=== PATIENT | female | born 1970 | race Caucasian/White ===

== ENCOUNTER 2016-06-17 17:24 | Emergency (ER) | payer SELFPAY ==
[~2016-06-17] VITALS: Ht 162.6 cm; Wt 106.8 kg
[~2016-06-17 17:24] MED LIST: ALBUTEROL SULFAT8 MG; ALDACTONE 25MG25 M1 PO; AMOXICILLIN875 MG PO; ATIVAN 1MG T1 MG/TAB PO; ATIVAN1 MG PO; B-1100 MG PO; CATAPRES; CATAPRES 0.1MG0.1 MG PO; CATAPRES PO; CATAPRES0.1 MG PO; CATAPRES0.2 MG PO; CATAPRES0.3 MG PO; CELEXA 20MG20 MG/TAB PO; CIPRO 250MG TA250 MG PO; CIPRO 500MG TA500 MG PO; CLEOCIN HC150 MG/CAP PO; CLINDAMYCIN300 MG PO; COREG 25MG25 MG/TAB PO; DIFLUCAN100 MG PO; DILAUDID 2MG TAB2 MG; DILAUDID 4MG TAB4 MG PO; DOXYCYCLINE 10100 MG PO; EFFEXOR XR75 MG/CAP PO; FLEXERIL 1010 MG/TAB PO; FOLIC ACID 11 MG/TA1 PO; HYDROCODONE/APAP PO; HYDROXYZINE HCL25 MG PO; INDERAL 20MG20 MG PO; KLOR-CON M2020 MEQ PO; LASIX 20MG TABL20 MG PO; LEVSIN 0.10.125 MG/T PO; LIPITOR 10MG10 MG PO; LOPRESSOR 550 MG/TAB PO; LORTAB 5/500 501 TAB PO; MOTRIN 200200 MG/TAB PO; MOTRIN800 MG PO; MULTI VITAMINS1 TAB PO; NAPROSYN500 MG PO; NITROSTAT0.4 MG/TAB SL; NO HOME MEDICATIONS; NORCO 325 MG-51 TAB PO; NORVASC 5MG5 MG/TAB PO; PEN-VEE K250 MG PO; PERCOCET 325 MG1 TA2 PO; PERCOCET 325 MG1 TAB PO; PERCOCET 5/321 UDTAB PO; PREDNISONE20 MG PO; PRILOSEC 20MG20 MG PO; PROAIR HFA0.09 MG/AC IH; PROCARDIA XL 3030 MG PO; PROPRANOLOL HCL40 MG PO; PROVENTIL0.09 MG/A1 IH; RT ADVAIR 228 DISKUS IH; TESSALON PERLE200 MG PO; TOPROL; TOPROL XL50 MG PO; ULTRAM 50MG TAB50 MG PO; ULTRAM100 MG PO; ULTRAM50 MG PO; XANAX; XANAX 1MG1 MG PO; XANAX1 MG PO; ZITHROMAX 250M250 MG PO; ZOLOFT50 MG PO; [UNRECOGNIZED DRUG - OTHER]; [UNRECOGNIZED DRUG - REMARK]; propanolol
[2016-06-17 17:33] VITALS: BP 143/107; TEMP 100.7
[2016-06-17 19:57] LABS: AMPHETAMINE URINE NEGATIVE; BARBITURATES URINE NEGATIVE; BENZODIAZEPINES URINE NEGATIVE; BUPRENORPHINE URINE NEGATIVE; METHADONE URINE NEGATIVE; OPIATES URINE NEGATIVE; OXYCODONE URINE NEGATIVE; PHENCYCLIDINE URINE NEGATIVE; PROPOXYPHENE URINE NEGATIVE; THC CANNABINOIDS URINE NEGATIVE
[2016-06-17 20:08] LABS: BASO # 0.1 (0.0-0.2); BASO % 0.7 % (0.0-2.0); EOS # 0.2 (0.0-0.7); EOS % 1.4 % (0-4.0); GRAN # 5.6 (1.4-6.5); GRAN % 49.6 % (42.2-75.2); HEMOGLOBIN 15.5 g/dl (12.5-16.0); LYMPH # 4.4 (1.2-3.4); LYMPH % 39.6 % (20.0-51.0); MEAN CELL VOLUME 93 fl (80.0-100.0); MEAN CORPUSCULAR HEMOGLOBIN 31 pg (27.0-31.0); MEAN CORPUSCULAR HGB CONC 34 g/dl (33.0-37.0); MEAN PLATELET VOLUME 9.3 fl (7.4-10.4); MONO % 8.5 % (1.7-9.3); PLATELET COUNT 330 K/mm3 (130-400); RED BLOOD COUNT 4.94 M/mm3 (4.10-5.30); REDCELL DISTRIBUTION WIDTH-CV 13.5 % (11.5-14.5); WHITE BLOOD COUNT 11.2 K/mm3 (4.8-10.8)
[2016-06-17 20:11] LABS: ADJUSTED CALCIUM 9.1 mg/dL (8.4-10.2); ALBUMIN 4.6 gm/dL (3.5-5.0); BILIRUBIN,TOTAL 0.8 mg/dL (0.0-1.0); CALCIUM 9.6 mg/dL (8.4-10.2); CREATININE, serum 0.95 mg/dL (0.52-1.25); POTASSIUM 3.8 mmol/L (3.4-5.0); TOTAL PROTEIN 7.8 gm/dL (6.4-8.2)
[2016-06-18] VITALS: PULSE 92
== END 2016-06-18 00:01 | disposition home or self-care (01) ==
LOC: COL.ER 17:24
PROVIDERS: Family Medicine
DX: F32.9 Major depressive disorder, single episode, unspecified (principal); F10.120 Alcohol abuse with intoxication, uncomplicated; Y90.6 Blood alcohol level of 120-199 mg/100 ml; F17.210 Nicotine dependence, cigarettes, uncomplicated

== ENCOUNTER 2016-07-02 17:37 | Emergency (ER) | payer MEDICAID ==
[~2016-07-02] VITALS: Ht 162.6 cm; Wt 109.1 kg
[2016-07-02 17:39] VITALS: TEMP 98.3
[2016-07-02 18:10] LABS: HEMATOCRIT 39.4 % (37.0-47.0); HEMOGLOBIN 13.3 g/dl (12.5-16.0); MEAN CELL VOLUME 94 fl (80.0-100.0); MEAN CORPUSCULAR HEMOGLOBIN 32 pg (27.0-31.0); MEAN CORPUSCULAR HGB CONC 34 g/dl (33.0-37.0); MEAN PLATELET VOLUME 10.4 fl (7.4-10.4); PLATELET COUNT 192 K/mm3 (130-400); REDCELL DISTRIBUTION WIDTH-CV 13.7 % (11.5-14.5)
[2016-07-02 18:13] LABS: WHITE BLOOD COUNT 1.9 K/mm3 (4.8-10.8)
[2016-07-02 18:14] LABS: ADD PATHOLOGY DIFF REVIEW NO
[2016-07-02 18:15] LABS: INR 1.2 (0.8-3.0); PROTHROMBIN TIME 13.6 SECONDS (9.7-12.8)
[2016-07-02 18:18] LABS: PARTIAL THROMBOPLASTIN TIME 31.9 SECONDS (26.0-37.0)
[2016-07-02 18:20] LABS: ADJUSTED CALCIUM 9.1 mg/dL (8.4-10.2); ALBUMIN 3.5 gm/dL (3.5-5.0); BILIRUBIN,TOTAL 1.4 mg/dL (0.0-1.0); CALCIUM 8.7 mg/dL (8.4-10.2); CREATININE, serum 1.56 mg/dL (0.52-1.25); POTASSIUM 3.4 mmol/L (3.4-5.0); TOTAL PROTEIN 6.6 gm/dL (6.4-8.2)
[2016-07-02 18:31] LABS: TROPONIN-I 0.015 ng/mL (0.000-0.034)
[2016-07-02 18:50] LABS: ARTERIAL BLD GAS TCO2 CT 21.8; ARTERIAL BLOOD GAS HCO3 20.6 meq/L (22-26); ARTERIAL BLOOD GAS PHT 7.33 C (7.35-7.45); ARTERIAL BLOOD GAS PO2 62.4 mmHg (80-100); ARTERIAL BLOOD GAS PO2T 62.4 (80-100); ARTERIAL BLOOD GAS pH 7.33 (7.35-7.45); OXYHEMOGLOBIN 90.2 %
[2016-07-02 18:52] LABS: ATS? YES
[2016-07-02 19:04] LABS: INFLUENZA B NEGATIVE
[2016-07-02 19:34] LABS: BAND 44 % (0-10); BASOPHIL 4 % (0-2); NEUTROPHILS 24 % (42.0-75.2); PLATELET ESTIMATE NORMAL (NORMAL)
[2016-07-02 19:35] LABS: TOTAL CELLS COUNTED 25
[2016-07-02 21:20] VITALS: BP 68/58; PULSE 86
== END 2016-07-02 21:35 | disposition short-term general hospital (02) ==
LOC: COL.ER 17:37
PROVIDERS: Family Medicine
DX: J96.90 Respiratory failure, unspecified, unspecified whether with hypoxia or hypercapnia (principal); J18.9 Pneumonia, unspecified organism; I10 Essential (primary) hypertension; J44.9 Chronic obstructive pulmonary disease, unspecified
CPT/HCPCS: C1751; J0330; J1100; J1170; J2185; J2250; J2405; J3010; J3370; J7030; J7050; J7060

== ENCOUNTER → 2016-07-31 | Outpatient (CLI) | payer MEDICAID ==
[2016-07-31 09:31] LABS: BASO # 0.1 (0.0-0.2); BASO % 0.7 % (0.0-2.0); EOS # 0.5 (0.0-0.7); EOS % 4.3 % (0-4.0); GRAN % 65.1 % (42.2-75.2); HEMATOCRIT 43.6 % (37.0-47.0); HEMOGLOBIN 13.9 g/dl (12.5-16.0); LYMPH # 2.1 (1.2-3.4); LYMPH % 19.6 % (20.0-51.0); MEAN CELL VOLUME 97 fl (80.0-100.0); MEAN CORPUSCULAR HEMOGLOBIN 31 pg (27.0-31.0); MEAN CORPUSCULAR HGB CONC 32 g/dl (33.0-37.0); MEAN PLATELET VOLUME 9.2 fl (7.4-10.4); MONO % 9.6 % (1.7-9.3); PLATELET COUNT 404 K/mm3 (130-400); RED BLOOD COUNT 4.51 M/mm3 (4.10-5.30); REDCELL DISTRIBUTION WIDTH-CV 12.9 % (11.5-14.5); WHITE BLOOD COUNT 10.8 K/mm3 (4.8-10.8)
[2016-07-31 10:06] LABS: ADJUSTED CALCIUM 10.2 mg/dL (8.4-10.2); BILIRUBIN,TOTAL 0.9 mg/dL (0.0-1.0); CALCIUM 10.2 mg/dL (8.4-10.2); CREATININE, serum 0.66 mg/dL (0.52-1.25); POTASSIUM 4.9 mmol/L (3.4-5.0)
[2016-07-31 10:37] LABS: THYROID STIMULATING HORMONE 1.1 uIU/mL (0.465-4.680)
== END ==
LOC: COL.LAB 08:40 → ZLAB.FHCC 08:40
DX: J16.8 Pneumonia due to other specified infectious organisms (principal); E11.69 Type 2 diabetes mellitus with other specified complication

== ENCOUNTER → 2016-11-24 | Outpatient (CLI) | payer OTHER | LOC: COL.RAD 08:56 | DX: Z02.71 Encounter for disability determination (principal); M46.96 Unspecified inflammatory spondylopathy, lumbar region; M51.46 Schmorl's nodes, lumbar region ==

== ENCOUNTER → 2017-02-27 | Outpatient (CLI) | payer MEDICAID | LOC: COL.CARD 11:34 | DX: R00.2 Palpitations (principal) ==

== ENCOUNTER 2018-10-02 15:19 | Emergency (ER) | payer SELFPAY ==
[~2018-10-02] VITALS: Ht 160 cm; Wt 100.0 kg
[2018-10-02 15:30] VITALS: TEMP 98.3
[2018-10-02 16:05] LABS: BASO # 0.1 (0.0-0.2); EOS # 0.4 (0.0-0.7); EOS % 4.3 % (0-4.0); GRAN # 5.8 (1.4-6.5); GRAN % 63.3 % (42.2-75.2); HEMATOCRIT 40.7 % (37.0-47.0); HEMOGLOBIN 13.1 g/dl (12.5-16.0); LYMPH # 2.1 (1.2-3.4); LYMPH % 22.9 % (20.0-51.0); MEAN CELL VOLUME 94 fl (80.0-100.0); MEAN CORPUSCULAR HEMOGLOBIN 30 pg (27.0-31.0); MEAN CORPUSCULAR HGB CONC 32 g/dl (33.0-37.0); MEAN PLATELET VOLUME 9.4 fl (7.4-10.4); MONO # 0.7 (0.1-0.6); PLATELET COUNT 297 K/mm3 (130-400); RED BLOOD COUNT 4.31 M/mm3 (4.10-5.30); REDCELL DISTRIBUTION WIDTH-CV 12.1 % (11.5-14.5)
[2018-10-02 16:07] LABS: INR 0.9 (0.8-3.0); PROTHROMBIN TIME 10.1 SECONDS (9.7-12.8)
[2018-10-02 16:09] LABS: PARTIAL THROMBOPLASTIN TIME 30.7 SECONDS (26.0-37.0)
[2018-10-02 16:16] LABS: D-DIMER < 200.00 ng/mLDDu (200-230)
[2018-10-02 16:26] LABS: ALANINE AMINOTRANSFERASE 27 U/L (9-52); ALBUMIN 3.6 gm/dL (3.5-5.0); ALKALINE PHOSPHATASE 78 U/L (50-136); ANION GAP 7 mmol/L (7-16); AST,SGOT 25 U/L (15-37); BILIRUBIN,TOTAL 0.4 mg/dL (0.0-1.0); BLOOD UREA NITROGEN 18 mg/dL (7-17); CALCIUM 8.7 mg/dL (8.4-10.2); CARBON DIOXIDE 28 mmol/L (22-30); CHLORIDE 107 mmol/L (98-107); CREATININE, serum 0.61 (0.52-1.25); GLUCOSE 119 mg/dL (74-106); LIPASE 256 U/L (23-300); SODIUM 142 mmol/L (137-145); TOTAL PROTEIN 6.5 gm/dL (6.4-8.2)
[2018-10-02] MEDS ORDERED: PRINIVIL5 MG PO (16:37)
[2018-10-02] MEDS ORDERED: MINIPRESS 1M1 MG/CAP PO (16:38)
[2018-10-02] MEDS ORDERED: LEXAPRO20 MG PO (16:38)
[2018-10-02 16:45] LABS: TROPONIN-I < 0.012 ng/mL (0.000-0.035)
[2018-10-02] MEDS ORDERED: PREDNISONE20 MG PO (17:04)
[2018-10-02] MEDS ORDERED: ZITHROMAX 250M250 MG PO (17:04)
[2018-10-02 17:15] VITALS: BP 144/102; PULSE 73
== END 2018-10-02 17:22 | disposition home or self-care (01) ==
LOC: COL.ER 15:19
PROVIDERS: Emergency Medicine
DX: J40 Bronchitis, not specified as acute or chronic (principal); I10 Essential (primary) hypertension; E78.5 Hyperlipidemia, unspecified; J44.9 Chronic obstructive pulmonary disease, unspecified; Z86.711 Personal history of pulmonary embolism; Z87.891 Personal history of nicotine dependence
CPT/HCPCS: J7512

== ENCOUNTER → 2020-05-15 | Outpatient (CLI) | payer SELFPAY ==
[~2020-05-15] MED LIST changes: +LEXAPRO20 MG PO; +MINIPRESS 1M1 MG/CAP PO; +PRINIVIL5 MG PO
== END ==
LOC: COL.RAD 08:39
DX: K44.9 Diaphragmatic hernia without obstruction or gangrene (principal); K21.9 Gastro-esophageal reflux disease without esophagitis

== ENCOUNTER 2020-07-24 06:59 | Day surgery (SDC) | payer OTHER ==
[~2020-07-24] VITALS: Ht 162.6 cm; Wt 117.6 kg
[2020-07-24] MEDS ORDERED: CARAFATE 1GM1 G PO (08:50)
[2020-07-24 09:05] VITALS: BP 157/96; PULSE 91; TEMP 97.4
--- NOTE | 2020-07-24 09:05 | NUR ---
Pt to GI bay 3 via cart from ENDO. Pt awake and alert. Pt ambulates to recliner with stand by assistance. Pt denies pain or nausea. Grape juice given per pt request. Will continue to monitor. Call light within reach.
[2020-07-24 09:20] VITALS: BP 144/103; PULSE 82
--- NOTE | 2020-07-24 09:20 | NUR ---
Pt continues to rest. Denies needs. Call light within reach.
[2020-07-24 09:35] VITALS: BP 149/104; PULSE 81
--- NOTE | 2020-07-24 09:35 | NUR ---
Pt tolerating juice without difficulties. Will continue to monitor. Call light within reach.
[2020-07-24 09:44] VITALS: BP 180/115; PULSE 95; TEMP 96.4
--- NOTE | 2020-07-24 09:45 | NUR ---
Discharge instructions reviewed. Pt voices understanding. IV site discontinued with all parts intact. Pt up to dress. Call light within reach.
--- NOTE | 2020-07-24 10:00 | NUR ---
Pt escorted to private car via wheel chair. Pt accompanied home by her daughter.
== END 2020-07-24 10:00 | disposition home or self-care (01) ==
LOC: SDCO 06:59
DX: K29.30 Chronic superficial gastritis without bleeding (principal); K21.9 Gastro-esophageal reflux disease without esophagitis; J44.9 Chronic obstructive pulmonary disease, unspecified; R13.10 Dysphagia, unspecified; E78.5 Hyperlipidemia, unspecified; G47.33 Obstructive sleep apnea (adult) (pediatric); I25.10 Atherosclerotic heart disease of native coronary artery without angina pectoris; I10 Essential (primary) hypertension; G89.29 Other chronic pain; K44.9 Diaphragmatic hernia without obstruction or gangrene; F41.9 Anxiety disorder, unspecified; Z95.1 Presence of aortocoronary bypass graft; Z90.710 Acquired absence of both cervix and uterus; Z79.899 Other long term (current) drug therapy; Z88.2 Allergy status to sulfonamides; Z20.822 Contact with and (suspected) exposure to COVID-19; Z87.891 Personal history of nicotine dependence
CPT/HCPCS: J2704

== ENCOUNTER → 2020-12-18 | Emergency (ER) | payer SELFPAY ==
[~2020-12-18] VITALS: Ht 160 cm; Wt 130.0 kg
[~2020-12-18] MED LIST changes: +CARAFATE 1GM1 G PO
[2020-12-18 20:00] VITALS: BP 163/107; PULSE 106; TEMP 98.5
== END ==
LOC: COL.ER 19:28
DX: R51.9 Headache, unspecified (principal)

== ENCOUNTER 2022-02-10 17:30 | Inpatient (IN) | payer SELFPAY ==
[~2022-02-10] VITALS: Ht 162.6 cm; Wt 120.0 kg
[2022-02-10 18:27] LABS: BASO # 0.1 K/mm3 (0.0-0.2); BASO % 0.7 % (0.0-2.0); EOS # 0.2 K/mm3 (0.0-0.7); EOS % 1.7 % (0.0-4.0); GRAN # 7.6 K/mm3 (1.4-6.5); GRAN % 70.5 % (42.2-75.2); HEMATOCRIT 38.9 % (37.0-47.0); HEMOGLOBIN 11.8 g/dl (12.5-16.0); LYMPH # 1.7 K/mm3 (1.2-3.4); LYMPH % 16.1 % (20.0-51.0); MEAN CELL VOLUME 90 fl (80.0-100.0); MEAN CORPUSCULAR HEMOGLOBIN 27 pg (27-31); MEAN CORPUSCULAR HGB CONC 30 g/dl (33.0-37.0); MEAN PLATELET VOLUME 9.7 fl (7.4-10.4); MONO # 1.1 K/mm3 (0.1-0.6); MONO % 10.6 % (1.7-9.3); PLATELET COUNT 368 K/mm3 (130-400); RED BLOOD COUNT 4.32 M/mm3 (4.10-5.30); REDCELL DISTRIBUTION WIDTH-CV 18.2 % (11.5-14.5)
[2022-02-10 18:43] LABS: BILIRUBIN,TOTAL 0.7 mg/dL (0.2-1.2); CALCIUM 9.6 mg/dL (8.4-10.2); CREATININE, serum 1.05 mg/dL (0.57-1.11); POTASSIUM 3.1 mmol/L (3.5-4.5)
[2022-02-10 18:51] LABS: TROPONIN-I 0.043 ng/mL (0.00-0.033)
[2022-02-10 18:53] LABS: ARTERIAL BLD GAS O2 SATURATION 94.3 % (92-100); ARTERIAL BLD GAS TCO2 CT 28.3; ARTERIAL BLOOD GAS BASE EXCESS -0.6 (-2-2); ARTERIAL BLOOD GAS HCO3 26.6 meq/L (22-26); ARTERIAL BLOOD GAS PCO2 54.9 mmHg (35-45)
--- NOTE | 2022-02-10 22:30 | NUR ---
pt brought to room 343 from ED. pt a&o, answering questing appropriately. pt unable to sit still. admission assess complete. Pt reports difficulty breathing, 5L NC applied. Tele in place. no needs at this time. call light within reach. pt has red dye on body that she reports is from trying to make koolaid.
[2022-02-10 23:21] VITALS: BP 187/122; PULSE 124; TEMP 98.6
[2022-02-11] VITALS (7 sets, daily range): BP systolic 94–144; BP diastolic 52–88; PULSE 86–121; TEMP 96.4–99.2
--- NOTE | 2022-02-11 01:00 | NUR ---
PT DIAPHORETIC AND UNABLE TO SIT STILL CAUSING IV TO COME OUT. NEW IV INSERTED.
--- NOTE | 2022-02-11 01:36 | NUR ---
PT DAUGHTER, FLORIAN RIVERA ([phone]) CALLED AND STATED SHE LIVES IN [place] BUT IS COMING TO DOWN WITHIN THE NEXT TWO DAYS TO CONVINCE MOTHER TO GO TO REHAB. OTHER DAUGHTER IS [place] AND LIVES IN [facility].
[2022-02-11 04:54] LABS: COLLECTION METHOD CLEAN CATCH
[2022-02-11 05:06] LABS: MUCOUS Present (NOT PRESENT); SQUAMOUS EPITHELIAL 0-2 /hpf (0-10); URINE BACTERIA None Seen /hpf (NONE SEEN); URINE RBC 20-50 /hpf (0-2)
[2022-02-11 05:10] LABS: URINE APPEARANCE Clear (CLEAR/HAZY); URINE COLOR Yellow (YELLOW)
[2022-02-11 05:11] LABS: URINE BLOOD 2+ (NEGATIVE); URINE GLUCOSE Negative (NEGATIVE); URINE KETONE 2+ (NEGATIVE); URINE NITRATE Negative (NEGATIVE); URINE PROTEIN(semi-quant) 2+ (NEGATIVE); URINE UROBILINOGEN 0.2 E.U/dL (0.2-1.0)
[2022-02-11 05:16] LABS: TRICYCLIC ANTIDEPRESS URINE NEGATIVE
--- NOTE | 2022-02-11 09:00 | NUR ---
Pt. laying in bed. Pt. is resting quietly with respirations equal and unlabored. Pt. arousable to verbal stimuli. When pt. is awake, pt. has uncontrollable body movements which tend to stop when sleeping. Shift assessment complete. INT to lt. forearm patent. Pt. denies pain or other needs, call light within reach.
[2022-02-11 09:33] LABS: CALCIUM 8.7 mg/dL (8.4-10.2); CREATININE, serum 0.83 mg/dL (0.57-1.11); POTASSIUM 4.1 mmol/L (3.5-4.5)
--- NOTE | 2022-02-11 17:05 | NUR ---
SW attempted to complete intake, however patient sleeping. Several attempts made to arouse patient but was unsuccessful.
--- NOTE | 2022-02-11 21:00 | NUR ---
PATIENT IS CALM IN BED.PATIENT REPORTS OF A HEADACHE.MEDICATION ADMINISTERED PER MAR.PATEINT HAS UNCONTROLLED BLE MOVEMENTS.PATIENT IS A SBA.PATIENT'S DAUGHTER CALLED SHE STATED THAT SHE WILL LIKE THE DOCTOR TO CALL HER AND EXPLAIN HER MUM'S LAB RESULTS.SHE FEELS THAT SHE HAS EXTRA INFO THAT SHE WILL LIKE TO SHARE WITH THE DOCTOR.THIS WILL IN TURN HELP IN PATIENT CARE.HER NUMBER IS [phone].
[2022-02-12 04:09] VITALS: BP 127/86; PULSE 103; TEMP 98
--- NOTE | 2022-02-12 06:01 | NUR ---
PATIENT SLEPT FOR MOST PART OF THE NIGHT.PATIENT HAS SUPPLEMENTAL OXYGEN AT 4L/HR.PATIENT IS A STANDBY ASSIST.NO SEIZURES OBSERVED NOR SOB.SAFETY MEASURES IN PLACE.NO OHER NEEDS AT THIS TIME.
[2022-02-12 06:37] LABS: BASO % 0.1 % (0.0-2.0); GRAN % 89.3 % (42.2-75.2); HEMOGLOBIN 10.7 g/dl (12.5-16.0); LYMPH # 0.6 K/mm3 (1.2-3.4); LYMPH % 4.3 % (20.0-51.0); MEAN CELL VOLUME 93 fl (80.0-100.0); MEAN CORPUSCULAR HEMOGLOBIN 27 pg (27-31); MEAN CORPUSCULAR HGB CONC 30 g/dl (33.0-37.0); MEAN PLATELET VOLUME 10.1 fl (7.4-10.4); MONO # 0.8 K/mm3 (0.1-0.6); MONO % 5.6 % (1.7-9.3); PLATELET COUNT 284 K/mm3 (130-400); REDCELL DISTRIBUTION WIDTH-CV 18.4 % (11.5-14.5)
[2022-02-12 06:44] LABS: HEMATOCRIT 36.1 % (37.0-47.0)
[2022-02-12 06:50] LABS: CALCIUM 8.8 mg/dL (8.4-10.2); CREATININE, serum 0.78 mg/dL (0.57-1.11); MAGNESIUM 2.4 mg/dL (1.6-2.6); POTASSIUM 4.1 mmol/L (3.5-4.5)
[2022-02-12 07:41] VITALS: BP 129/74; PULSE 107; TEMP 97.9
--- NOTE | 2022-02-12 08:35 | NUR ---
Pt. sitting up in bed. Pt. is A&OX3, assessment complete. INT to lt. forearm patent. Pt. denies pain or other needs, call light within reach.
--- NOTE | 2022-02-12 10:30 | NUR ---
Pt. transfered to room 308. Report given to ELAINA Donohue
[2022-02-12 10:38] VITALS: BP 98/65; PULSE 133; TEMP 98.3
--- NOTE | 2022-02-12 10:41 | NUR ---
PT ADMITTED TO MEDICAL UNIT ROOM 308. PT ORIENTED TO ROOM, SHIFT ASSESSMENT COMPLETED. PT DENIES ANY NEEDS AT THIS TIME. FAMILY CONTACTED AND UPDATED PER PT REQUEST. WILL CONTINUE TO MONITOR. CALL LIGHT WITHIN REACH.
[2022-02-12 11:19] VITALS: BP 121/67; PULSE 97; TEMP 97.8
[2022-02-12 15:22] VITALS: BP 138/89; PULSE 106; TEMP 97.7
[2022-02-12] MEDS ORDERED: ASPIRIN 81M81 MG/TA2 PO (16:50)
[2022-02-12 21:10] VITALS: BP 145/76; PULSE 104; TEMP 98.2
--- NOTE | 2022-02-13 00:02 | NUR ---
PATIENT IS LAYING IN BED TALKING ON TELEPHONE. PATIENT INTRODUCES THIS NURSE TO HER MOTHER ON THE PHONE. PATIENT REQUESTS PEPSI AND VLAD CRACKS; NURSE PROVIDES REQUESTED SNACKS TO PATIENT. PATIENT DENIES ANY FURTHER NEEDS OR CONERNS. PATIENT HAS CALL LIGHT IN HAND AND IS ENCOURAGED BY THIS NURSE TO CALL WITH ANY NEEDS.
[2022-02-13 01:18] VITALS: BP 117/69; PULSE 101; TEMP 98
[2022-02-13 04:41] VITALS: BP 148/89; PULSE 61; TEMP 98.1
--- NOTE | 2022-02-13 05:47 | NUR ---
PATIENT HAS HAD AN UNEVENTFUL NIGHT. PATIENT'S INVOLUNTARY MOVEMENTS HAVE IMPROVED, EVIDENCED BY THE PATIENT BEING ABLE TO LAY STILL WITH OCCASSIONAL LEG TWITCHING. PATIENT DENIES NEEDS OR CONCERNS. PATIENT HAS CALL LIGHT WITHIN REACH AND ENCOURAGED TO USE WITH ANY NEEDS OR CONCERNS. PATIENT STATES UNDERSTANDING AND STATES SHE IS THANKFUL FOR HER CARES.
[2022-02-13 07:11] LABS: HEMOGLOBIN 10.8 g/dl (12.5-16.0); MEAN CELL VOLUME 92 fl (80.0-100.0); MEAN CORPUSCULAR HEMOGLOBIN 27 pg (27-31); MEAN CORPUSCULAR HGB CONC 30 g/dl (33.0-37.0); MEAN PLATELET VOLUME 9.7 fl (7.4-10.4); PLATELET COUNT 273 K/mm3 (130-400); RED BLOOD COUNT 3.98 M/mm3 (4.10-5.30); REDCELL DISTRIBUTION WIDTH-CV 17.9 % (11.5-14.5)
[2022-02-13 07:14] LABS: HEMATOCRIT 36.5 % (37.0-47.0)
[2022-02-13 07:15] VITALS: BP 136/88; PULSE 102; TEMP 98.1
[2022-02-13 07:21] LABS: CALCIUM 8.6 mg/dL (8.4-10.2); CREATININE, serum 0.8 mg/dL (0.57-1.11); MAGNESIUM 2.5 mg/dL (1.6-2.6)
--- NOTE | 2022-02-13 08:00 | NUR ---
Pt resting in bed. Morning medications administered. Shift assessment completed. O2 per NC turned off by RT as Ex Ox ordered for this morning; O2 is at 92%. Telemetry on; pt remains tachy with HR in the 100s. Doxycycline infusing in L forearm @150mL/hr; intact. No edema or redness. Pt complains of headache; PRN Tylenol administered per eMAR for pain. Call light within reach.
[2022-02-13] MEDS ORDERED: DOXYCYCLINE 10100 MG PO (08:12)
[2022-02-13] MEDS ORDERED: PREDNISONE20 MG PO (08:18)
[2022-02-13] MEDS ORDERED: OXYGEN NASAL.CANN (08:18)
[2022-02-13 08:35] LABS: ANISOCYTOSIS 1+; BAND 1 % (0-10); HYPOCHROMIA 3+; LYMPHOCYTE 2 % (20.0-51.0); NEUTROPHILS 93 % (42.0-75.2); PLATELET ESTIMATE NORMAL (NORMAL)
[2022-02-13 11:44] VITALS: BP 152/85; PULSE 102; TEMP 98.2
--- NOTE | 2022-02-13 12:00 | NUR ---
Pt given discharge instructions by this AUTOMOBILE SERVICE ADVISOR. All questions answered.
--- NOTE | 2022-02-13 15:19 | NUR ---
Technical Services Librarian met with patient to discuss discharge planning. Patient lives in [place] with her mom, Nataly and advised her two daughters, Atiya and Clover also live here in [place]. Patient does not have DPOA-HC and is not interested in completing one at this time. Patient is not and has three daughters: Atiya, Clover, and Laura. [facility] and obtains medications from [facility]. Patient is normally independent with ADLS and plans to return home today. Patient will need home oxygen set up and is self pay. Patient has a concentrator and tank from [facility] already at home. SW faxed [facility] a new referral and they will bring up new tubing and cannulas for patient. Patient advised her daughters will bring up her oxygen tank for transport home. Discharge Plan: Home
--- NOTE | 2022-02-13 17:15 | NUR ---
Pt escorted by JAMIE Mcneil out of facility.
== END 2022-02-13 17:15 | disposition home or self-care (01) | DRG 189 ==
LOC: COL.ER 17:30 → SURG 19:43 → MEDICAL 02-12 10:13
PROVIDERS: Emergency Medicine; Hospitalist; Student in an Organized Health Care Education/Training Program; ADMIT Internal Medicine
DX: J96.01 Acute respiratory failure with hypoxia (principal); I21.A1 Myocardial infarction type 2; J44.1 Chronic obstructive pulmonary disease with (acute) exacerbation; G93.40 Encephalopathy, unspecified; J96.02 Acute respiratory failure with hypercapnia; I10 Essential (primary) hypertension; I25.10 Atherosclerotic heart disease of native coronary artery without angina pectoris; K21.9 Gastro-esophageal reflux disease without esophagitis; F10.10 Alcohol abuse, uncomplicated; F19.10 Other psychoactive substance abuse, uncomplicated; G89.29 Other chronic pain; R44.1 Visual hallucinations; K44.9 Diaphragmatic hernia without obstruction or gangrene; F15.129 Other stimulant abuse with intoxication, unspecified; M54.9 Dorsalgia, unspecified; Z20.822 Contact with and (suspected) exposure to COVID-19; E87.6 Hypokalemia; Z95.5 Presence of coronary angioplasty implant and graft; Z88.2 Allergy status to sulfonamides; Z90.710 Acquired absence of both cervix and uterus; Z90.49 Acquired absence of other specified parts of digestive tract; Z87.891 Personal history of nicotine dependence; Z23 Encounter for immunization
CPT/HCPCS: J1650; J2060; J2405; J2930; J7030

== ENCOUNTER 2024-01-07 16:37 | Emergency (ER) | payer SELFPAY ==
[~2024-01-07] VITALS: Ht 160 cm; Wt 109.5 kg
[~2024-01-07 16:37] MED LIST changes: +AMOXICILLIN 8751 TAB PO; +ASPIRIN 81M81 MG/TA2 PO; +OXYGEN NASAL.CANN
[2024-01-07 16:49] VITALS: TEMP 98
[2024-01-07 17:43] LABS: BASO # 0.1 K/mm3 (0.0-0.2); BASO % 0.6 % (0.0-2.0); EOS # 0.3 K/mm3 (0.0-0.7); EOS % 3.6 % (0.0-4.0); GRAN # 6.5 K/mm3 (1.4-6.5); GRAN % 74.8 % (42.2-75.2); HEMATOCRIT 41.7 % (37.0-47.0); HEMOGLOBIN 12.8 g/dl (12.5-16.0); LYMPH # 1.1 K/mm3 (1.2-3.4); LYMPH % 13.2 % (20.0-51.0); MEAN CELL VOLUME 96 fl (80.0-100.0); MEAN CORPUSCULAR HEMOGLOBIN 30 pg (27-31); MEAN CORPUSCULAR HGB CONC 31 g/dl (33.0-37.0); MEAN PLATELET VOLUME 10.5 fl (7.4-10.4); MONO # 0.7 K/mm3 (0.1-0.6); MONO % 7.6 % (1.7-9.3); PLATELET COUNT 210 K/mm3 (130-400); RED BLOOD COUNT 4.34 M/mm3 (4.10-5.30); REDCELL DISTRIBUTION WIDTH-CV 12.7 % (11.5-14.5)
[2024-01-07 17:50] LABS: INR 0.9 (0.8-3.0); PROTHROMBIN TIME 10.3 SECONDS (9.7-12.8)
[2024-01-07 18:01] LABS: COLLECTION METHOD IN
[2024-01-07 18:07] LABS: ALBUMIN 3.3 g/dL (3.5-5.0); BILIRUBIN,TOTAL 1.1 mg/dL (0.2-1.2); CALCIUM 9.1 mg/dL (8.4-10.2); CREATININE, serum 0.81 mg/dL (0.57-1.11); POTASSIUM 3.1 mEq/L (3.5-4.5); TOTAL PROTEIN 6.5 g/dl (6.2-8.1)
[2024-01-07 18:09] LABS: PH 6.5 (5.0-8.5); URINE APPEARANCE CLOUDY (CLEAR/HAZY); URINE BLOOD TRACE (NEGATIVE); URINE COLOR YELLOW (YELLOW); URINE GLUCOSE NEGATIVE (NEGATIVE); URINE KETONE TRACE (NEGATIVE); URINE NITRATE NEGATIVE (NEGATIVE); URINE PROTEIN(semi-quant) 1+ (NEGATIVE)
[2024-01-07 18:13] LABS: TROPONIN-I 0.022 ng/mL (0.00-0.033)
[2024-01-07 18:15] LABS: TRICYCLIC ANTIDEPRESS URINE NEGATIVE (NEGATIVE)
[2024-01-07 19:46] VITALS: BP 118/71; PULSE 80
== END 2024-01-07 19:44 | disposition home or self-care (01) ==
LOC: COL.ER 16:37
PROVIDERS: Family Medicine
DX: F15.90 Other stimulant use, unspecified, uncomplicated (principal); E87.6 Hypokalemia; Z99.81 Dependence on supplemental oxygen

== ENCOUNTER 2024-01-17 15:12 | Inpatient (IN) | payer SELFPAY ==
[~2024-01-17] VITALS: Ht 162.7 cm; Wt 103.2 kg
[2024-01-17] MEDS ORDERED: LORazepam 2 MG/ML 1 ML VIAL IV ONE ×4 (15:30→23:00)
[2024-01-17] MEDS ORDERED: LR 1,000 ML IV ONE ×2 (15:30→17:15)
[2024-01-17 15:50] LABS: ALANINE AMINOTRANSFERASE 38 U/L (0-55); ALBUMIN 4.3 g/dL (3.5-5.0); ALKALINE PHOSPHATASE 81 U/L (40-150); ANION GAP 22 mmol/L (7-16); AST,SGOT 68 U/L (5-34); BILIRUBIN,TOTAL 2.3 mg/dL (0.2-1.2); BLOOD UREA NITROGEN 24 mg/dL (10-20); CALCIUM 10.9 mg/dL (8.4-10.2); CHLORIDE 101 mEq/L (98-107); CREATINE KINASE 2041 U/L (29-168); CREATININE, serum 2.44 mg/dL (0.57-1.11); GLUCOSE 165 mg/dL (70-99); POTASSIUM 3.3 mEq/L (3.5-4.5); SODIUM 145 mEq/L (136-145); TOTAL PROTEIN 7.8 g/dl (6.2-8.1)
[2024-01-17 15:51] LABS: SALICYLATE < 5.0 mg/dL (15.0-30.0)
[2024-01-17 15:56] LABS: TROPONIN-I 0.177 ng/mL (0.00-0.033)
[2024-01-17 16:00] LABS: HEMATOCRIT 42.2 % (37.0-47.0); HEMOGLOBIN 13.3 g/dl (12.5-16.0); MEAN CELL VOLUME 94 fl (80.0-100.0); MEAN CORPUSCULAR HEMOGLOBIN 30 pg (27-31); MEAN CORPUSCULAR HGB CONC 32 g/dl (33.0-37.0); MEAN PLATELET VOLUME 10.3 fl (7.4-10.4); PLATELET COUNT 337 K/mm3 (130-400); REDCELL DISTRIBUTION WIDTH-CV 12.9 % (11.5-14.5)
[2024-01-17 16:27] LABS: HYPOCHROMIA 2+; LYMPHOCYTE 7 % (20.0-51.0); NEUTROPHILS 86 % (42.0-75.2); PLATELET ESTIMATE NORMAL (NORMAL); TOXIC GRANULATION PRESENT
[2024-01-17 17:07] LABS: COLLECTION METHOD CLEAN CATCH
[2024-01-17 17:14] LABS: PH 5.5 (5.0-8.5); URINE APPEARANCE CLOUDY (CLEAR/HAZY); URINE BLOOD 3+ (NEGATIVE); URINE COLOR YELLOW (YELLOW); URINE GLUCOSE NEGATIVE (NEGATIVE); URINE KETONE TRACE (NEGATIVE); URINE NITRATE NEGATIVE (NEGATIVE); URINE PROTEIN(semi-quant) 2+ (NEGATIVE)
[2024-01-17 17:21] LABS: TRICYCLIC ANTIDEPRESS URINE NEGATIVE (NEGATIVE)
[2024-01-17 17:25] LABS: SQUAMOUS EPITHELIAL 0-2 /hpf (0-10)
[2024-01-17 17:26] LABS: MUCOUS PRESENT (NOT PRESENT); URINE BACTERIA MODERATE /hpf (NONE SEEN)
[2024-01-17] MEDS ORDERED: Acetaminophen 325 MG TAB PO PRN (19:15)
[2024-01-17] MEDS ORDERED: Ondansetron 4 MG/2 ML VIAL IV PRN (19:15)
[2024-01-17] MEDS ORDERED: Heparin 5,000 UNITS/ML 1 ML VIAL SQ SCH (19:15)
[2024-01-17] MEDS ORDERED: LORazepam 2 MG/ML 1 ML VIAL IV SCH (19:30)
[2024-01-17] MEDS ORDERED: D5 1/2 NS & 20 mEq KCl 1,000 ML IV SCH (19:30)
[2024-01-17 22:23] VITALS: BP 172/78; PULSE 112; TEMP 98.4
[2024-01-18] VITALS (13 sets, daily range): BP systolic 129–165; BP diastolic 76–95; PULSE 88–119; TEMP 97.4–98.3
--- NOTE | 2024-01-18 01:38 | NUR ---
Patient arrived to medical unit from ER at approximately 2215. Alert and oriented. Speech slurred and hard to understand. Patients arms and legs thrashing around. Assisted onto bedpan for BM, but not able to have a BM. Did not get on commode due to weakness and thrashing around in bed. Peripheral IV to left forearm with IV fluids running per orders. Denies pain and discomfort. LS CTA in upper lobes, diminsihed in lower. HRR. Telemetry in place. BSAx4. No edema. Abrasion to abdomen, looks like rug burn. Excoriation to abdominal folds/groin. Beltre catheter in place, draining clear theodora urine. New order from William for 2 mg IV now received at 2250 for patient continueing to thrash around in bed. When order was verified by pharmacy, patient seemed to have settled down and was resting in bed with eyes closed. Respirations even and unlabored. Held scheduled Ativan at 2330 as well due to patient resting. Given scheduled dose around 0130, as patient had woken and was thrashing in bed again. In bed with call light within reach. High fall risk precautions in place. Bed alarm on.
--- NOTE | 2024-01-18 02:33 | NUR ---
Troponin called to SETH Thomas at 0150.
--- NOTE | 2024-01-18 06:30 | NUR ---
Patient received scheduled Ativan per orders during the night. Held when sleeping. Patient continues to thrash arms and legs around in bed when awake. Given ice chips as requested. Continues on oxygen at 4 L/min via NC. In bed with call light within reach. Bed alarm on. Voices no further questions, needs, or concerns at this time. IV fluids continue per orders.
--- NOTE | 2024-01-18 07:19 | NUR ---
Patient laying in bed, legs and arms constantly moving, patient states this is normal. A&Ox4. VSS. IV CDI, fluids infusing. Denies pain and discomfort. Beltre intact. Ice chips only. Call light within reach. Bed alarm on
[2024-01-18] MEDS ORDERED: Pantoprazole 40 MG in NS 10 ML IV SCH (09:00)
[2024-01-18 09:26] LABS: BASO # 0.1 K/mm3 (0.0-0.2); BASO % 0.6 % (0.0-2.0); EOS # 0.4 K/mm3 (0.0-0.7); EOS % 3.1 % (0.0-4.0); GRAN # 8.1 K/mm3 (1.4-6.5); GRAN % 70.8 % (42.2-75.2); HEMATOCRIT 37.3 % (37.0-47.0); HEMOGLOBIN 11.7 g/dl (12.5-16.0); LYMPH # 1.6 K/mm3 (1.2-3.4); LYMPH % 13.9 % (20.0-51.0); MEAN CELL VOLUME 96 fl (80.0-100.0); MEAN CORPUSCULAR HEMOGLOBIN 30 pg (27-31); MEAN CORPUSCULAR HGB CONC 31 g/dl (33.0-37.0); MEAN PLATELET VOLUME 10.6 fl (7.4-10.4); MONO # 1.3 K/mm3 (0.1-0.6); MONO % 11.3 % (1.7-9.3); PLATELET COUNT 264 K/mm3 (130-400); REDCELL DISTRIBUTION WIDTH-CV 13.2 % (11.5-14.5)
[2024-01-18 09:48] LABS: CHOLESTEROL RISK RATIO 4.4
[2024-01-18 09:50] LABS: ALBUMIN 3.3 g/dL (3.5-5.0); BILIRUBIN,TOTAL 1.3 mg/dL (0.2-1.2); CALCIUM 8.6 mg/dL (8.4-10.2); CREATININE, serum 1.32 mg/dL (0.57-1.11); TOTAL PROTEIN 6.1 g/dl (6.2-8.1)
[2024-01-18 09:53] LABS: POTASSIUM 2.7 mEq/L (3.5-4.5)
[2024-01-18] MEDS ORDERED: Miconazole 2% Topical Powder BOTTLE TP SCH (10:00)
--- NOTE | 2024-01-18 10:09 | NUR ---
Critical labs reported to SETH Geronimo
[2024-01-18 10:10] LABS: THYROID STIMULATING HORMONE 0.217 uIU/mL (0.350-4.940)
[2024-01-18] MEDS ORDERED: *Potassium Replacement Protocol MC SCH (10:15)
[2024-01-18] MEDS ORDERED: Potassium Chloride 100 ML IV SCH (10:15)
[2024-01-18] MEDS ORDERED: Clopidogrel 300 MG DOSE (75 mg x 4 tabs) PO ONE (10:45)
--- NOTE | 2024-01-18 13:14 | NUR ---
SW met with patient to complete initial assessment for discharge planning. Patient sitting up in chair, experiencing uncontrolled, erratic body movements. Patient alert and able to answer questions. She did have difficulty making herself understood at times and asked for SW to be patient with her. Patient states that she has been staying with her daughter Atiya ([phone]) and states that she "is basically homeless". Patient shared that she's been taking care of her mother for about 6 years. Patient states she sees Sherlyn Connelly at [facility], is uninsured and uses [facility] with her mother paying for her meds when she needs them. Patient states she has oxygen at home provided by [facility] and uses her moms canes. Patient stated that she is an active methamphatemine user and states she wants help to quit using. She states she wanted to but wants help now. Patient agreeable to [facility] to screen her for placement. SW received call from patient's daughter Atiya who spoke rapidly on the phone. She identified herself as patient's daughter and stated that she wants us to talk to Lorraine who is patient's sister and also wants Lorraine documented as patient's DPOA. EH informed Atiya that she is the only person listed as contact on patient's chart and we cannot speak with anyone without patient's consent. EH also informed Atiya that patient is not capable of making legal decisions at this time and she is the only one who can decide who she wants to be DPOA if she wants to complete one. Atiya voiced frustration and was short with EH on the phone. She asked for updates after patient's testing is completed. EH spoke with patient's RN Pamela to inform of conversation with daughter. EH and RN met with patient in room to inquire about Lorraine. Patient stated she did not want us to talk to Lorraine and consented to us only talking with Atiya or her mom Nataly ([phone]). Patient having difficulty communicating clearly. Patient again verified that she has been staying with her daughter Atiya and Atiya's young children. EH spoke with CM Director Sherlyn Lima about case. She proivded information that patient's sister Lorraine had called her and voiced concerns of patient's situation and condition. SW will make CPS report related to drug use in home with young children. Discharge plan: [facility]
--- NOTE | 2024-01-18 20:00 | NUR ---
Initial shift assessment done- very restless, twitching/jerking in bed- throwing legs over/holding arms straight up, alert/mumbles-hard to understand, want to get up to bathroom- explained she has a Foleybut insists-- helped up to bathroom, gait unsteady , using walker- did not have a bowel movement-- back to bed,, does not have IV access when I received pt in report, trying to get one started, needs her Ativan as ordered. bed alarm on- call light in reach, close to [facility].
[2024-01-19] VITALS (9 sets, daily range): BP systolic 124–156; BP diastolic 54–102; PULSE 75–92; TEMP 97.8–98.5
[2024-01-19] MEDS ORDERED: Potassium Chloride 100 ML IV SCH ×2 (02:00→08:15)
--- NOTE | 2024-01-19 04:30 | NUR ---
Anxious, constantly moving, wanting to get up to bathroom numerous timesbut does not have results- lots of gas, pt complaining of Beltre- states its painful and wants it out-urine is slightly blood tinged ,,pt has been moving it and flipping around in the bed,, William ANN called and said ok to DC davy- mike viramontes at this time-- due for Ativan dose also at this time,,, pt upset about Potassium IV being gievn per protocol--did get 20 meq IV{ 2 bags of 10 meq each} but is refusing the rest -states its" hurting" her IV and trying to pick at IV,, will have another potassium recheck within the next hour with morning labs.
[2024-01-19 06:53] LABS: BASO # 0.1 K/mm3 (0.0-0.2); BASO % 0.5 % (0.0-2.0); EOS # 0.4 K/mm3 (0.0-0.7); EOS % 3.8 % (0.0-4.0); GRAN # 7.5 K/mm3 (1.4-6.5); GRAN % 72.3 % (42.2-75.2); HEMATOCRIT 37.4 % (37.0-47.0); HEMOGLOBIN 11.6 g/dl (12.5-16.0); LYMPH # 1.2 K/mm3 (1.2-3.4); LYMPH % 11.2 % (20.0-51.0); MEAN CELL VOLUME 96 fl (80.0-100.0); MEAN CORPUSCULAR HEMOGLOBIN 30 pg (27-31); MEAN CORPUSCULAR HGB CONC 31 g/dl (33.0-37.0); MONO # 1.2 K/mm3 (0.1-0.6); MONO % 11.9 % (1.7-9.3); PLATELET COUNT 260 K/mm3 (130-400); REDCELL DISTRIBUTION WIDTH-CV 13.2 % (11.5-14.5)
[2024-01-19 07:32] LABS: ALBUMIN 3.2 g/dL (3.5-5.0); BILIRUBIN,TOTAL 0.7 mg/dL (0.2-1.2); CALCIUM 8.8 mg/dL (8.4-10.2); CREATININE, serum 1.09 mg/dL (0.57-1.11); POTASSIUM 3.8 mEq/L (3.5-4.5); TOTAL PROTEIN 5.9 g/dl (6.2-8.1)
--- NOTE | 2024-01-19 08:00 | NUR ---
Patient laying in bed resting, woken up with shouting or touch. Alert, drowsy and hard to understand. VSS. IV CDI. Call light within reach. Bed alarm on, door left open
[2024-01-19] MEDS ORDERED: Clopidogrel 75 MG TAB PO SCH (09:00)
[2024-01-19] MEDS ORDERED: Escitalopram 10 MG TAB PO SCH (10:28)
--- NOTE | 2024-01-19 10:59 | NUR ---
Initial visit; Patient having difficulty, although expressed to Oxyacetylene Welder she wanted the syringe taped to the top of her hand taken off. Oxyacetylene Welder told her she would get her nurse and did so. She called her nurse as well. Patient suffering from issues from UTI.
--- NOTE | 2024-01-19 16:46 | NUR ---
Child Care Cook met with patient's daughter, Ligia to discuss discharge planning. Ligia expressed concern for patient who is homeless and has no where to go. Patient was staying with her mother who now lives at [facility]. The home they were renting is no longer leased to them. Patient's other daughter, Atiya is also about to lose her housing. Ligia stated she has four children and cannot have patient in her home. Ligia is hopeful patient will be agreeable to rehab and stated her aunt, patient's sister may be willing to private pay. SW advised Ligia that we can assist with resources, however she may be ready for discharge today after her screening with [place]. SW contacted and faxed referral for screening as patient is medically cleared. SW contacted [facility] and patient is not on their "No Return List", however there are no female beds at this time. SW consulted [employer] to inquire about Medicaid eligibility. SW attempted to follow up with patient about drug rehab resources. SW highlighted [facility], which can work with people who are uninsured. Patient kept eyes closed during interaction and seemed to have difficulty staying awake. SW attempted to discuss where she could stay and patient stated she did not have anywhere to go.
[2024-01-20] VITALS (13 sets, daily range): BP systolic 121–152; BP diastolic 74–92; PULSE 72–85; TEMP 97.7–98.4
--- NOTE | 2024-01-20 01:18 | NUR ---
PT IS IN THE CHAIR AND WOULD LIKE TO GO BACK TO THE BED. SHE IS ASSISTED OUT OF THE CHAIR AND BACK TO THE BED WITH THE BED ALARM ACTIVATED. SHE HAS BEEN EDUCATED TO NOT LEAVE THE BED UNTIL SHE HAS CALLED AND ASKED FOR ASSISTANCE. SHE IS ON OXYGEN, BUT SHE DOES MOVE IT OUT OF HER NOSE. SHE HAS BEEN EDUCATED ON LEAVING IT IN PLACE. SHE DOES STATE SHE IS HUNGRY AND WOULD LIKE SOME MORE CRACKERS. SHE HAS ONE IV WITH NOTHING INFUSING AT THIS TIME. SHE HAS A BAG ON THE BED WITH HER.
--- NOTE | 2024-01-20 06:44 | NUR ---
PT GOT OUT OF THE BED WITH NO ASSISTANCE AND WENT TO THE BATHROOM. SHE WAS EDUCATED AGAIN TO PLEASE CALL FOR ASSISTANCE.
[2024-01-20 07:57] LABS: ALBUMIN 3.2 g/dL (3.5-5.0); BILIRUBIN,TOTAL 0.4 mg/dL (0.2-1.2); CALCIUM 8.7 mg/dL (8.4-10.2); CREATININE, serum 0.95 mg/dL (0.57-1.11); POTASSIUM 3.9 mEq/L (3.5-4.5); TOTAL PROTEIN 6.1 g/dl (6.2-8.1)
[2024-01-20 08:16] LABS: BASO # 0.1 K/mm3 (0.0-0.2); BASO % 0.9 % (0.0-2.0); EOS # 0.5 K/mm3 (0.0-0.7); EOS % 7.2 % (0.0-4.0); GRAN # 3.7 K/mm3 (1.4-6.5); GRAN % 56.2 % (42.2-75.2); HEMATOCRIT 38.7 % (37.0-47.0); HEMOGLOBIN 11.9 g/dl (12.5-16.0); LYMPH # 1.6 K/mm3 (1.2-3.4); LYMPH % 23.9 % (20.0-51.0); MEAN CELL VOLUME 98 fl (80.0-100.0); MEAN CORPUSCULAR HEMOGLOBIN 30 pg (27-31); MEAN CORPUSCULAR HGB CONC 31 g/dl (33.0-37.0); MEAN PLATELET VOLUME 11.2 fl (7.4-10.4); MONO # 0.8 K/mm3 (0.1-0.6); MONO % 11.3 % (1.7-9.3); RED BLOOD COUNT 3.96 M/mm3 (4.10-5.30); REDCELL DISTRIBUTION WIDTH-CV 13.2 % (11.5-14.5)
--- NOTE | 2024-01-20 08:30 | NUR ---
Patient drowsy but arousable. Alert, answers orientation questions appropriately but asks why she is in the hospital. Tolerating food, denies pain, nausea, or shortness of breath. Bed in lowest position with call light within reach, bed alarm on. Fall precautions in place.
[2024-01-20 09:07] LABS: PLATELET COUNT 244 K/mm3 (130-400)
[2024-01-20] MEDS ORDERED: Potassium Bicarbonate/Citrate 20 MEQ Effervescent TAB PO ONE (11:00)
--- NOTE | 2024-01-20 15:35 | NUR ---
Bedside report given to ELAINA Dawson
--- NOTE | 2024-01-20 15:43 | NUR ---
THIS RN IS TAKING OVER CARE FOR THIS PATIENT. REPORT RECEIEVED FROM MARISABEL DELANEY. PATIENT IS RESTING IN BED. ALERT AND ORIENTED. DENIES NEEDS OR CONCERNS AT THIS TIME.
--- NOTE | 2024-01-20 17:17 | NUR ---
Windows Desktop Engineer followed up with patient who stated she wants to go to rehab. EH assisted patient in contacting [facility] and EH was advised they can set up a drug and alcohol assessment while she is here via zoom, however EH would need to create the meeting. EH secured an IPAD and re-contacted [facility]. EH was advised the screener, Anton Yost ([email or web address]) would be available tomorrow morning at 0830 for a screening. EH set up a zoom meeting for this time. EH also faxed facesheet and med list per their request to fax#[phone]. EH had RN assist patient in calling [facility] as they had follow up questions for her. RN stated that the [facility] manufacturers service representative on the phone told them there was nothing scheduled for her and could not help her. EH called [facility] again however it was after 1700 and their vocational placement specialistflowers salesperson answered and requested SW call back in the morning to get things straightened out. EH Pineda faxed referral to [facility] and [facility] to inquire about rehab bed availability.
--- NOTE | 2024-01-20 19:10 | NUR ---
PATIENT RESTING IN BED WITH TV ON WITH NO FAMILY PRESENT WITH NO ACUTE DISTRESS NOTED. PATIENT ON 3 LITERS OF OXYGEN VIA NC. INT TO RIGHT HAND INTACT WITH NO COMPLICATIONS NOTED. TELEMETRY INTACT. BEDSIDE SHIFT REPORT COMPLETED WITH YULIET AT THIS TIME. PATIENT DENIES ANY NEEDS. BED IN LOW POSITION WITH WHEELS LOCKED WITH RAILS UP X3 AND CALL LIGHT WITHIN REACH. BED ALARM ON.
--- NOTE | 2024-01-20 19:45 | NUR ---
PATIENT RESTING IN BED WITH TV OFF WITH NO FAMILY PRESENT WITH NO ACUTE DISTRESS NOTED. PATIENT ON 3 LITERS OF OXYGEN VIA NC. INT TO RIGHT HAND INTACT WITH NO COMPLICATIONS NOTED. TELEMETRY INTACT. PATIENT ASSISTED UP TO BATHROOM AT THIS TIME. PATIENT VOIDED AND HAD LARGE BOWEL MOVEMENT. NEW PULL UP APPLIED. PATIENT PERFORMED OWN PEDRO LUIS CARE. PATIENT ASSISTED BACK TO BED AND HELPED TO REPOSITION FOR COMFORT. ASSESSMENT COMPLETED. PATIENT TOLERATED WELL. PATIENT C/O HEART BURN AND REQUESTED ICE CREAM. ICE CREAM GIVEN. PATIENT DENIES ANY OTHER NEEDS. BED IN LOW POSITION WITH WHEELS LOCKED WITH RAILS UP X3 AND CALL LIGHT WITHIN REACH. BED ALARM ON.
--- NOTE | 2024-01-20 22:10 | NUR ---
PATIENT RESTING IN BED WITH TV ON WITH NO FAMILY PRESENT WITH NO ACUTE DISTRESS NOTED. PATIENT ON 3 LITERS OF OXYGEN VIA NC. INT TO RIGHT HAND INTACT WITH NO COMPLICATIONS NOTED. TELEMETRY INTACT. MEDICATION ADMINISTRATION COMPLETED AT THIS TIME. PATIENT TOLERATED WELL. ALL NEEDS MET. BED IN LOW POSITION WITH WHEELS LOCKED WITH RAILS UP X3 AND CALL LIGHT WITHIN REACH. BED ALARM ON.
[2024-01-21] VITALS (8 sets, daily range): BP systolic 152–178; BP diastolic 92–114; PULSE 69–78; TEMP 97.7–98.3
--- NOTE | 2024-01-21 08:00 | NUR ---
Patient awake, laying in bed. A&Ox4. VSS. BP hypertensive. IV CDI. Denies pain and discomfort. Call light within reach. Bed alarm on
--- NOTE | 2024-01-21 08:17 | NUR ---
PT REQUIRES 2 LPM O2 TO MAINTAIN SATS ABOVE 88%
[2024-01-21] MEDS ORDERED: Lisinopril 10 MG TAB PO SCH (09:00)
--- NOTE | 2024-01-21 16:48 | NUR ---
Appraiser Real Estate facilitated RADAC assessment with patient via zoom. aldo Field gave referral to [facility] [place] [facility] and advised SW/patient need to contact Sherlyn, Fire Extinguisher Inspector to coordinate admission. SW contacted Sherlyn who had SW discuss their oxygen policy, which is quite extensive. One requirement is that patient's oxygen provider has to cover the [place], which [facility] does not. SW contacted Manuel at [facility] who advised they would make an exception for patient. Patient's daughter, Atiya has her concentrator and will bring it up to the hospital. [facility] stated they can provide enough bottles for 7 days, which is also a requirement. SW will continue to coordiate with [facility] and [facility] to meet requirements of their policies so patient can be admitted for rehab.
--- NOTE | 2024-01-21 18:50 | NUR ---
PATIENT RESTING IN BED LYING ON LEFT SIDE WITH TV OFF WITH NO FAMILY PRESENT WITH NO ACUTE DISTRESS NOTED. PATIENT ON 1 LITER OF OXYGEN VIA NC. INT TO RIGHT HAND INTACT WITH NO COMPLICATIONS NOTED. TELEMETRY INTACT. BEDSIDE REPORT COMPLETED WITH PAULO AT THIS TIME. PATIENT DENIES ANY NEEDS. BED IN LOW POSITION WITH WHEELS LOCKED WITH RAILS UP X3 AND CALL LIGHT WITHIN REACH. BED ALARM ON.
--- NOTE | 2024-01-21 19:25 | NUR ---
PATIENT RESTING LYING ON RIGHT SIDE WITH TV OFF WITH NO FAMILY PRESENT WITH NO ACUTE DISTRESS NOTED. PATIENT ON 1 LITER OF OXYGEN VIA NC. INT TO RIGHT HAND INTACT WITH NO COMPLICATIONS NOTED. TELEMETRY INTACT. ASSESSMENT COMPLETED AT THIS TIME. PATIENT TOLERATED WELL. TRAY REMOVED FROM ROOM AT THIS TIME. PATIENT ATE 100%. PATIENT DENIES ANY NEEDS. BED IN LOW POSITION WITH WHEELS LOCKED WITH RAILS UP X3 AND CALL LIGHT WITHIN REACH. BED ALARM ON.
--- NOTE | 2024-01-21 21:36 | NUR ---
PATIENT RESTING IN BED WITH TV OFF WITH NO FAMILY PRESENT WITH NO ACUTE DISTRESS NOTED. PATIENT ON 1 LITER OF OXYGEN VIA NC. INT TO RIGHT HAND INTACT WITH NO COMPLICATIONS NOTED. MEDICATION ADMINISTRATION COMPLETED AT THIS TIME. PATIENT TOLERATED WELL. PATIENT REQUESTED TO USE THE BATHROOM. PATIENT AMBULATED TO BATHROOM WITH STAND BY ASSIST. PATIENT VOIDED AND DID OWN PEDRO LUIS CARE. PATIENT AMBULATED BACK TO BED AND REQUESTED POPCORN, PEPSI, GRAM CRACKERS, AND PEANUT BUTTER. ALL GIVEN. PATIENT DENIES ANY OTHER NEEDS. BED IN LOW POSITION WITH WHEELS LOCKED WITH RAILS UP X3 AND CALL LIGHT WITHIN REACH. BED ALRAM ON.
[2024-01-22] VITALS (15 sets, daily range): BP systolic 138–187; BP diastolic 82–115; PULSE 60–76; TEMP 98–98.4
--- NOTE | 2024-01-22 08:11 | NUR ---
Patient resting in bed, alert and oriented x 4, with hypertension. Reassesed 170/93. Medicatins provided. Headache. Tylenol given. No other pain or discomfort. Assessment completed. To recheck BP in 1hr.
[2024-01-22] MEDS ORDERED: hydroCHLOROthiazide 12.5 MG CAP PO SCH (09:00)
[2024-01-22] MEDS ORDERED: Lisinopril 10 MG TAB PO SCH (09:00)
[2024-01-22] MEDS ORDERED: Lisinopril 10 MG TAB PO ONE ×2 (09:00→12:15)
[2024-01-22] MEDS ORDERED: Potassium Bicarbonate/Citrate 20 MEQ Effervescent TAB PO ONE (10:45)
--- NOTE | 2024-01-22 11:49 | NUR ---
Call placed to to report persistent BP in patient 185/115. Message left.
[2024-01-22] MEDS ORDERED: hydrALAZINE 10 MG TAB PO PRN (12:00)
[2024-01-22] MEDS ORDERED: OXYGEN (14:30)
--- NOTE | 2024-01-22 15:54 | NUR ---
Patient has been accepted at [facility], located in [place] for 01/28/24 at 1100. EH met with patient who is agreeable to this and advised she could likely stay with family until then. EH contacted daughter, Ligia who advised patient will stay with either her or her sister until admitting to [facility]. Ligia advised they can also provide patient with a ride. Ligia has patient's concentrator and knows to contact [facility] for tanks when patient gets home. Patient will discharge home tomorrow with family. Discharge Plan: Home with family then to rehab next week [facility] [address] [place] [address] Sherlyn, Intake Counselor Ligia, Daughter
[2024-01-22] MEDS ORDERED: Lisinopril 20 MG TAB PO SCH (21:00)
--- NOTE | 2024-01-22 21:54 | NUR ---
PATIENT RESTING IN BED. REPORTING HEADACHE, TYLENOL GIVEN. DENIES ANY OTHER PAIN. CALL LIGHT WITHIN REACH. BED IS LOCKED AND IN LOW POSITION WITH BED ALARM ON
[2024-01-23] VITALS: BP 164/97; PULSE 65; TEMP 98.4
[2024-01-23 01:05] VITALS: BP_SYST 164
[2024-01-23 04:00] VITALS: BP 162/95; PULSE 74; TEMP 98
[2024-01-23 04:35] VITALS: BP_SYST 162
--- NOTE | 2024-01-23 07:00 | NUR ---
Pt sitting up in bed. Pt reported feeling nauseous. Pt requested phone to order breakfast. Offered cool cloth. No further needs at this time. Call light in reach.
[2024-01-23 07:23] VITALS: BP 142/88; PULSE 63; TEMP 98.1
[2024-01-23] MEDS ORDERED: Potassium Bicarbonate/Citrate 20 MEQ Effervescent TAB PO SCH (07:30)
--- NOTE | 2024-01-23 07:55 | NUR ---
Pt sitting up in bed. Completed personal hygiene. A&Ox4. VSS. S1S2. Clear lungs on RA. ABD round, soft, non-tender with audible bowel sounds. Pt reports cool washclothes helped with nausea. Palpable pulses in all extremities with 5/5 strength. Pt deneis pain, nausea, headaches, dizziness at this time. AM meds administered. INT in R hand is patent. No further needs. CAll light in reach.
[2024-01-23] MEDS ORDERED: PROAIR HFA0.09 MG/AC IH (08:56)
[2024-01-23] MEDS ORDERED: PLAVIX 75MG TAB75 MG PO (08:57)
[2024-01-23] MEDS ORDERED: TOPROL XL100 MG PO (08:57)
[2024-01-23] MEDS ORDERED: ASPIRIN E.C. 8181 MG PO (08:58)
[2024-01-23] MEDS ORDERED: ZESTRIL40 MG PO (08:58)
[2024-01-23] MEDS ORDERED: DESENEX TP (08:58)
[2024-01-23 09:01] VITALS: BP_SYST 142
[2024-01-23] MEDS ORDERED: LEXAPRO20 MG PO (09:01)
--- NOTE | 2024-01-23 09:01 | NUR ---
EH notified by attending Dr. Oakes that patient is stable for discharge today. EH called patient's daughter Ligia to verify that patient will discharge to her home. Ligia confirmed that she will pick patient up for discharge to Ligia's home and she will transport to rehab next week. Ligia also stated that patient uses [facility] and family will order picker/assembler medications without difficulty. Discharge plan: Home with family
[2024-01-23] MEDS ORDERED: K-DUR20 MEQ PO (09:03)
--- NOTE | 2024-01-23 10:49 | NUR ---
Pt and family educated on D/C instructions and information. Answered Pt and family questions. INT D/C'ed from R hand, Pressure bandage placed. Tele monitor removed. No further needs. Pt ambulated to vehicle with this RN.
== END 2024-01-23 10:50 | disposition home or self-care (01) | DRG 91 ==
LOC: COL.ER 15:12 → MEDICAL 21:04
PROVIDERS: Emergency Medicine; Physician Assistant; ADMIT Internal Medicine
DX: G92.8 Other toxic encephalopathy (principal); J96.01 Acute respiratory failure with hypoxia; N17.9 Acute kidney failure, unspecified; R45.851 Suicidal ideations; R00.0 Tachycardia, unspecified; D72.829 Elevated white blood cell count, unspecified; E87.6 Hypokalemia; F32.A Depression, unspecified; I10 Essential (primary) hypertension
CPT/HCPCS: A4314; J1644; J2060; J2250; J2470; J3480; J7120

== ENCOUNTER 2024-03-24 20:30 | Inpatient (IN) | payer SELFPAY ==
[~2024-03-24] VITALS: Ht 160 cm; Wt 116.7 kg
[~2024-03-24 20:30] MED LIST changes: +ASPIRIN E.C. 8181 MG PO; +DESENEX TP; +K-DUR20 MEQ PO; +OXYGEN; +PLAVIX 75MG TAB75 MG PO; +TOPROL XL100 MG PO; +ZESTRIL40 MG PO
[2024-03-24 21:12] LABS: BASO # 0.1 K/mm3 (0.0-0.2); BASO % 0.7 % (0.0-2.0); EOS # 0.3 K/mm3 (0.0-0.7); EOS % 3.2 % (0.0-4.0); GRAN # 7.1 K/mm3 (1.4-6.5); GRAN % 67.3 % (42.2-75.2); HEMATOCRIT 40.6 % (37.0-47.0); HEMOGLOBIN 12.3 g/dl (12.5-16.0); INR 0.9 (0.8-3.0); LYMPH # 1.9 K/mm3 (1.2-3.4); LYMPH % 18.1 % (20.0-51.0); MEAN CELL VOLUME 95 fl (80.0-100.0); MEAN CORPUSCULAR HEMOGLOBIN 29 pg (27-31); MEAN CORPUSCULAR HGB CONC 30 g/dl (33.0-37.0); MEAN PLATELET VOLUME 10.2 fl (7.4-10.4); MONO # 1.1 K/mm3 (0.1-0.6); MONO % 10.1 % (1.7-9.3); PLATELET COUNT 237 K/mm3 (130-400); PROTHROMBIN TIME 9.5 SECONDS (9.7-12.8); RED BLOOD COUNT 4.28 M/mm3 (4.10-5.30); REDCELL DISTRIBUTION WIDTH-CV 14.4 % (11.5-14.5)
[2024-03-24] MEDS ORDERED: Furosemide 40 MG/4 ML VIAL IV ONE (21:15)
[2024-03-24 21:26] LABS: ALBUMIN 3.6 g/dL (3.5-5.0); BILIRUBIN,TOTAL 0.7 mg/dL (0.2-1.2); CALCIUM 8.9 mg/dL (8.4-10.2); CREATININE, serum 0.96 mg/dL (0.57-1.11); POTASSIUM 4.2 mEq/L (3.5-4.5); TOTAL PROTEIN 6.5 g/dl (6.2-8.1)
[2024-03-24] MEDS ORDERED: Albuterol/Ipratropium 3 MG-0.5 MG/3 ML Neb Soln IH ONE (21:30)
[2024-03-24 21:32] LABS: TROPONIN-I 0.021 ng/mL (0.00-0.033)
--- NOTE | 2024-03-24 23:40 | NUR ---
Admitted to medical unit from ER, DX chf exacerbation, pt states is feeling much better at this time, o2 at 4L/nc,with sat of 96%, states still has the right sided chest pain 5/10 and would like some Tylenol for that- Pt states she knows its just from being SOB,, VSS, did get one dose of Lasix IV in ER and will get another dose tonight- Pt alert/oriented x4, Up to bathroom, very steady on feet, no HX of falls. INT to left FA.
[2024-03-24] MEDS ORDERED: ZYPREXA 5MG5 MG PO (23:55)
[2024-03-24] MEDS ORDERED: TYLENOL 325MG325 MG PO (23:57)
[2024-03-25] VITALS (9 sets, daily range): BP systolic 134–145; BP diastolic 77–89; PULSE 69–82; TEMP 97.7–99.9
[2024-03-25] MEDS ORDERED: Furosemide 40 MG/4 ML VIAL IV SCH
[2024-03-25] MEDS ORDERED: OLANZapine 5 MG TAB PO SCH (00:26)
[2024-03-25] MEDS ORDERED: Acetaminophen 500 MG TAB PO PRN (00:30)
[2024-03-25] MEDS ORDERED: Albuterol/Ipratropium 3 MG-0.5 MG/3 ML Neb Soln IH PRN (04:15)
--- NOTE | 2024-03-25 05:51 | NUR ---
States feeling much better, has had good output/2000cc since up to medical floor at 2330 last night.o2 at 4L/nc 94% sats.
[2024-03-25 06:56] LABS: BASO # 0.1 K/mm3 (0.0-0.2); BASO % 0.6 % (0.0-2.0); EOS # 0.3 K/mm3 (0.0-0.7); EOS % 3.8 % (0.0-4.0); GRAN # 5.5 K/mm3 (1.4-6.5); GRAN % 67.2 % (42.2-75.2); HEMATOCRIT 39.1 % (37.0-47.0); LYMPH # 1.4 K/mm3 (1.2-3.4); LYMPH % 17.5 % (20.0-51.0); MEAN CELL VOLUME 94 fl (80.0-100.0); MEAN CORPUSCULAR HEMOGLOBIN 29 pg (27-31); MEAN CORPUSCULAR HGB CONC 31 g/dl (33.0-37.0); MEAN PLATELET VOLUME 9.9 fl (7.4-10.4); MONO # 0.9 K/mm3 (0.1-0.6); MONO % 10.4 % (1.7-9.3); PLATELET COUNT 219 K/mm3 (130-400); RED BLOOD COUNT 4.15 M/mm3 (4.10-5.30); REDCELL DISTRIBUTION WIDTH-CV 14.4 % (11.5-14.5)
[2024-03-25] MEDS ORDERED: Lisinopril 20 MG TAB PO SCH (09:00)
[2024-03-25] MEDS ORDERED: Clopidogrel 75 MG TAB PO SCH (09:00)
[2024-03-25] MEDS ORDERED: Famotidine 20 MG TAB PO SCH (09:00)
[2024-03-25] MEDS ORDERED: Escitalopram 10 MG TAB PO SCH ×2 (09:00)
--- NOTE | 2024-03-25 09:38 | NUR ---
Initial visit; Patient is Jew. She thanked Opening Machine Cleaner for coming in and states she is not affiliated with any mandaeism and declines spiritual care but is very friendly and sweet to visit with.
--- NOTE | 2024-03-25 10:47 | NUR ---
SW met with patient to complete initial assessment for discharge planning. Patient verified that she lives in [place] with her daughter Ligia Simpson ([phone]) and her grandchildren. 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 Patient lists her daughter Atiya Taylor ([phone]) as her DPOA. Patient states she uses [facility] and sees Sherlyn Connelly as PCP. Patient uses [email or web address] and states she struggles to afford her medications due to being uninsured. SW discussed patient talking to [facility] about medication assist. Patient has home oxygen provided by [facility]. Patient stated that she is scheduled with [facility] Hawthorne for drug abuse support. Patient voices pride in herself for completing the rehab program and taking steps to continue sobriety. Discharge plan is for patient to return home with daughter. Discharge plan: Home
--- NOTE | 2024-03-25 13:30 | NUR ---
PATIENT LAYING IN BED WITH LEFT AC IV, SITTING IN BED, CALL LIGHT WITHIN REACH. NO COMPLAINTS REPORTED TO STUDENT NURSE AT THIS TIME
--- NOTE | 2024-03-25 20:03 | NUR ---
PATIENT RESTING IN BED WATCHING TV. CURRENTLY ON O2 3L VIA NASAL CANNULA. DENIES PAIN AT THIS TIME. CALL LIGHT WITHIN REACH. BED IS LOCKED AND IN LOW POSITION.
[2024-03-25] MEDS ORDERED: Atorvastatin 40 MG TAB PO SCH (21:00)
[2024-03-26] VITALS (7 sets, daily range): BP systolic 103–151; BP diastolic 76–95; PULSE 76–83; TEMP 97.7–99.2
[2024-03-26 05:49] LABS: CALCIUM 8.1 mg/dL (8.4-10.2); CREATININE, serum 0.93 mg/dL (0.57-1.11); POTASSIUM 3.8 mEq/L (3.5-4.5)
--- NOTE | 2024-03-26 06:40 | NUR ---
PT RESTING IN BED. PT IS NOT ON TELE. PT WEARING 3L NC, WHICH IS HER BASELINE. PT IS [employer]. PT HAS CALL LIGHT AND INSTRUCTED TO CALL [facility] ALL NEEDS.
[2024-03-26] MEDS ORDERED: LIPITOR 40MG TA40 MG PO (09:53)
[2024-03-26] MEDS ORDERED: LASIX 40MG TABL40 MG PO (09:54)
--- NOTE | 2024-03-26 10:52 | NUR ---
1040-IV REMOVED. DISCHARGE INSTRUCTIONS DISCUSSED WITH PT. DISCUSSED NEW MEDICATIONS, FOLLOW UP, AND LAB WORK. ALL QUESTIONS ANSWERED. WILL CALL WHEN DAUGHTER ARRIVES.
--- NOTE | 2024-03-26 11:23 | NUR ---
Pt wheeled out for discharge by [facility]. Pt has discharge instructions. Accompained by Pt's daughter.
== END 2024-03-26 11:24 | disposition home or self-care (01) | DRG 291 ==
LOC: COL.ER 20:30 → MEDICAL 22:24
PROVIDERS: Emergency Medicine; Internal Medicine; Physician Assistant; ADMIT Internal Medicine
DX: I11.0 Hypertensive heart disease with heart failure (principal); I50.33 Acute on chronic diastolic (congestive) heart failure; F32.A Depression, unspecified; J44.9 Chronic obstructive pulmonary disease, unspecified; I25.10 Atherosclerotic heart disease of native coronary artery without angina pectoris; Z95.5 Presence of coronary angioplasty implant and graft; K21.9 Gastro-esophageal reflux disease without esophagitis; Z87.891 Personal history of nicotine dependence; Z79.82 Long term (current) use of aspirin; Z79.02 Long term (current) use of antithrombotics/antiplatelets; Z79.899 Other long term (current) drug therapy; I49.3 Ventricular premature depolarization
CPT/HCPCS: J1650; J1940